=== PATIENT | female | born 1965 | race Caucasian/White ===

== ENCOUNTER 2019-02-04 23:31 | Emergency (ER) | payer OTHER ==
[2019-02-05 00:04] VITALS: BP 117/70; PULSE 73; TEMP 98.4; BMI 23.6
[2019-02-05] MEDS ORDERED: DIPHTH,PERTUSS(ACELL),TET VAC 0.5 ML VIAL IM ONE (00:58)
--- NOTE | 2019-02-05 00:58 | PDOC ---
History of Present Illness - General Chief Complaint: Injury Stated Complaint: INJURY-WORK Time Seen by Provider: 02/05/19 00:57 History Source: Patient - History of Present Illness Initial Comments: 02/05/19 01:17 53 year old female right hand scratch from a waste basket. denies needle stick injury. 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 patient reports unsure of tatnus. patient recently on boarded with occupational health. patient reports that she washed her hand with soap and water no pmhx 02/05/19 01:24 Past History - Past Medical History Allergies/Adverse Reactions: Allergies Allergy/AdvReac Type Severity Reaction Status Date / Time Penicillins Allergy Verified 02/05/19 00:03 Home Medications: Ambulatory Orders Oseltamivir Phosphate [Tamiflu -] 75 mg PO BID #10 capsule 06/30/17 COPD: No Thyroid Disease: (denies) - Immunization History Immunization Up to Date: Yes - Psycho Social/Smoking Cessation Hx Smoking Status: No Smoking History: Never smoked Have you smoked in the past 12 months: No Number of Cigarettes Smoked Daily: 0 Information on smoking cessation initiated: No Hx Alcohol Use: No Drug/Substance Use Hx: No Substance Use Type: None Review of Systems - Review of Systems Able to Perform ROS?: Yes Is the patient limited Hungarian proficient: No Musculoskeletal: Yes: Other (abrasion) *Physical Exam - Vital Signs Last Vital Signs Temp Pulse Resp BP Pulse Ox 98.4 F 73 18 117/70 98 02/04/19 23:31 02/04/19 23:31 02/04/19 23:31 02/04/19 23:31 02/04/19 23:31 - Physical Exam General Appearance: Yes: Moderate Distress Extremity: positive: Other (5 mm abrasion to right hand) Integumentary: positive: Normal Color, Dry, Warm Neurologic: positive: Fully Oriented, Alert Medical Decision Making - Medical Decision Making Abrasion P: patient to follow up in [facility],. Discharge - Discharge Information Problems reviewed: Yes Clinical Impression/Diagnosis: Abrasion - Follow up/Referral Referrals: Lauren Navarrete [Primary Care Provider] - - Patient Discharge Instructions Additional Instructions: please follow up in occupational health tomorrow for tetanus shot if its not already given in September this year. - Post Discharge Activity Work/Back to School Note: Back to Work
--- NOTE | 2019-02-05 01:03 | PDOC ---
*Physical Exam - Vital Signs Last Vital Signs Temp Pulse Resp BP Pulse Ox 98.4 F 73 18 117/70 98 02/04/19 23:31 02/04/19 23:31 02/04/19 23:31 02/04/19 23:31 02/04/19 23:31 Medical Decision Making - Medical Decision Making 02/05/19 01:03 Patient seen by the advanced practice provider under my direct supervision. Ancillary testing reviewed as necessary. I agree with plan as outlined by the advanced practice provider. Discharge - Discharge Information Problems reviewed: Yes Clinical Impression/Diagnosis: Abrasion - Follow up/Referral Referrals: Lauren Navarrete [Primary Care Provider] - - Patient Discharge Instructions Additional Instructions: please follow up in occupational health tomorrow for tetanus shot if its not already given in September this year. - Post Discharge Activity Work/Back to School Note: Back to Work
== END 2019-02-05 02:00 | disposition home or self-care (01) ==
LOC: JER 23:31
DX: S60.511A Abrasion of right hand, initial encounter (principal); W22.8XXA Striking against or struck by other objects, initial encounter; Y93.H9 Activity, other involving exterior property and land maintenance, building and construction; Y92.238 Other place in hospital as the place of occurrence of the external cause; Y99.0 Civilian activity done for income or pay; Z88.0 Allergy status to penicillin
CPT/HCPCS: 99281-25